=== PATIENT | female | born 1995 | race African-American/Black ===

== ENCOUNTER 2016-12-20 11:23 | Inpatient (IN) | payer MEDICAID ==
[~2016-12-20] VITALS: Ht 157.5 cm; Wt 85.0 kg
[~2016-12-20 11:23] MED LIST: MOTRIN 800800 MG/TAB PO; PERCOCET 325 MG1 TA2 PO; PRENATAL
[2016-12-27] MEDS ORDERED: PRENATAL MVI PO (12:06)
[2017-01-26] VITALS (19 sets, daily range): BP systolic 92–147; BP diastolic 53–77; PULSE 68–96; TEMP 97.2–98.1
[2017-01-26 05:37] LABS: BASO % 0.4 % (0.0-2.0); EOS % 0.4 % (0-4.0); GRAN # 4.4 (1.4-6.5); GRAN % 52.1 % (42.2-75.2); LYMPH # 3.2 (1.2-3.4); LYMPH % 38.2 % (20.0-51.0); MEAN CELL VOLUME 81 fl (80.0-95.0); MEAN CORPUSCULAR HGB CONC 33 g/dl (33.0-37.0); MEAN PLATELET VOLUME 11.1 fl (7.4-10.4); MONO # 0.7 (0.1-0.6); MONO % 8.7 % (1.7-9.3); PLATELET COUNT 255 K/mm3 (130-400); RED BLOOD COUNT 4.38 M/mm3 (4.10-5.30); REDCELL DISTRIBUTION WIDTH-CV 14.6 % (11.5-14.5); WHITE BLOOD COUNT 8.4 K/mm3 (4.8-10.8)
[2017-01-26 05:42] LABS: HEMATOCRIT 35.6 % (35.0-45.0); HEMOGLOBIN 11.8 g/dl (12.0-15.0); MEAN CORPUSCULAR HEMOGLOBIN 27 pg (26.0-32.0)
[2017-01-27 04:30] VITALS: BP 114/72; PULSE 69; TEMP 97.3
[2017-01-27 06:56] VITALS: BP 107/75; PULSE 78; TEMP 97.6
[2017-01-27 09:56] LABS: BASO % 0.1 % (0.0-2.0); EOS % 0.3 % (0-4.0); GRAN # 6.2 (1.4-6.5); LYMPH # 2.5 (1.2-3.4); LYMPH % 26.2 % (20.0-51.0); MEAN CELL VOLUME 84 fl (80.0-95.0); MEAN CORPUSCULAR HGB CONC 32 g/dl (33.0-37.0); MEAN PLATELET VOLUME 10.8 fl (7.4-10.4); MONO # 0.9 (0.1-0.6); MONO % 9.1 % (1.7-9.3); PLATELET COUNT 227 K/mm3 (130-400); RED BLOOD COUNT 4.21 M/mm3 (4.10-5.30); REDCELL DISTRIBUTION WIDTH-CV 14.9 % (11.5-14.5); WHITE BLOOD COUNT 9.6 K/mm3 (4.8-10.8)
[2017-01-27 10:14] LABS: HEMATOCRIT 35.4 % (35.0-45.0); HEMOGLOBIN 11.3 g/dl (12.0-15.0); MEAN CORPUSCULAR HEMOGLOBIN 27 pg (26.0-32.0)
[2017-01-27 16:37] VITALS: BP 104/59; PULSE 74; TEMP 98.6
[2017-01-27 19:55] VITALS: BP 99/57; PULSE 87; TEMP 98.3
[2017-01-28 08:48] VITALS: BP 114/59; PULSE 77; TEMP 98.2
[2017-01-28] MEDS ORDERED: IBU800 M1 PO (09:44)
[2017-01-28] MEDS ORDERED: PERCOCET 325 MG1 TA2 PO (09:44)
== END 2017-01-28 11:20 | disposition home or self-care (01) | DRG 766 ==
LOC: LDRO → EDSTATUS 11:43 → OB 01-26 05:00 → LDR 01-26 11:44 → OB 01-28 11:20
PROVIDERS: Obstetrics & Gynecology
PROC: 10D00Z1 Extraction of Products of Conception, Low, Open Approach (ICD-10-PCS; principal; 2017-01-26)
DX: O34.211 Maternal care for low transverse scar from previous cesarean delivery (principal); N85.8 Other specified noninflammatory disorders of uterus; O99.824 Streptococcus B carrier state complicating childbirth; O99.02 Anemia complicating childbirth; D64.9 Anemia, unspecified; Z3A.39 39 weeks gestation of pregnancy; Z37.0 Single live birth
CPT/HCPCS: J0690; J1885; J2270; J2405; J2590; J7120

== ENCOUNTER 2016-12-27 11:43 | Outpatient (CLI) | payer MEDICAID ==
[~2016-12-27] VITALS: Ht 157.5 cm; Wt 83.5 kg
[2016-12-27 11:59] VITALS: BP 116/65; PULSE 90; TEMP 98.8
[2016-12-27] MEDS ORDERED: PRENATAL MVI PO (12:06)
[2016-12-27 12:15] VITALS: BP 116/65; PULSE 90; TEMP 98.8
== END 2016-12-27 12:45 | disposition home or self-care (01) ==
LOC: LDRO 11:43
DX: O26.893 Other specified pregnancy related conditions, third trimester (principal); R10.2 Pelvic and perineal pain; Z3A.35 35 weeks gestation of pregnancy

== ENCOUNTER 2018-07-04 14:00 | Emergency (ER) | payer MEDICAID ==
[~2018-07-04] VITALS: Ht 157.5 cm; Wt 65.9 kg
[~2018-07-04 14:00] MED LIST changes: +IBU800 M1 PO; +PRENATAL MVI PO
[2018-07-04 14:02] VITALS: BP 116/70; TEMP 98.5
[2018-07-04] MEDS ORDERED: SKYLA13.5 MG IY (14:35)
[2018-07-04 14:54] LABS: COLLECTION METHOD CLEAN CATCH
[2018-07-04 14:59] LABS: HEMOGLOBIN 11.9 g/dl (12.5-16.0); MEAN CELL VOLUME 82 fl (80.0-100.0); MEAN CORPUSCULAR HEMOGLOBIN 26 pg (27.0-31.0); MEAN CORPUSCULAR HGB CONC 32 g/dl (33.0-37.0); MEAN PLATELET VOLUME 9.6 fl (7.4-10.4); PLATELET COUNT 444 K/mm3 (130-400); RED BLOOD COUNT 4.51 M/mm3 (4.10-5.30); REDCELL DISTRIBUTION WIDTH-CV 15.4 % (11.5-14.5)
[2018-07-04 15:05] LABS: MUCOUS Present /lpf; PH 6 (5-8); URINE APPEARANCE Cloudy; URINE BACTERIA None Seen /hpf; URINE BILIRUBIN Negative (NEGATIVE); URINE BLOOD 1+ (NEGATIVE); URINE COLOR Yellow; URINE GLUCOSE Negative (NEGATIVE); URINE KETONE Negative (NEGATIVE); URINE LEUKOCYTE ESTERASE Negative (NEGATIVE); URINE NITRATE Negative (NEGATIVE); URINE PROTEIN(semi-quant) 1+ (NEGATIVE); URINE RBC 0-2 /hpf
[2018-07-04 15:05] LABS: HEMATOCRIT 36.9 % (37.0-47.0)
[2018-07-04 15:10] LABS: ALBUMIN 3.7 gm/dL (3.5-5.0); BILIRUBIN,TOTAL 0.3 mg/dL (0.0-1.0); C-REACTIVE PROTEIN 0.6 mg/dL (0.0-0.9); CALCIUM 8.8 mg/dL (8.4-10.2); CREATININE, serum 0.74 mg/dL (0.52-1.25)
[2018-07-04 15:33] LABS: BAND 4 % (0-10); EOSINOPHIL 3 % (0-4); LYMPHOCYTE 52 % (20.0-51.0); NEUTROPHILS 37 % (42.0-75.2)
[2018-07-04 15:34] LABS: ANISOCYTOSIS 1+; PLATELET ESTIMATE INCREASED (NORMAL)
[2018-07-04 15:41] VITALS: PULSE 88
== END 2018-07-04 15:42 | disposition home or self-care (01) ==
LOC: COL.ER 14:00
PROVIDERS: Physician Assistant
DX: R10.2 Pelvic and perineal pain (principal); Z97.5 Presence of (intrauterine) contraceptive device

== ENCOUNTER 2019-02-12 10:16 | Day surgery (SDC) | payer MEDICAID ==
[~2019-02-12] VITALS: Ht 155 cm; Wt 60.3 kg
[~2019-02-12 10:16] MED LIST changes: +SKYLA13.5 MG IY
[2019-02-12] MEDS ORDERED: NATURAL IRON65 MG PO (13:58)
[2019-02-12] MEDS ORDERED: VITAMIN C500 MG PO (13:58)
[2019-02-12 14:25] VITALS: BP 98/52; PULSE 66; TEMP 97.7
[2019-02-12 16:10] VITALS: BP 90/59; PULSE 123; TEMP 97.4
--- NOTE | 2019-02-12 16:10 | NUR ---
Pt to [facility] [place] [facility] via cart from [place]. Pt drowsy, but awake. Denies pain or nausea. No movement to right upper extremity due to block placement. Right arm elevated, ice pack to right hand. Right fingers have +3 second capillary refill. Coffee and water given per pt request. No visitors here with pt at this time. Will continue to monitor.
[2019-02-12 16:25] VITALS: BP 92/69; PULSE 63
[2019-02-12] MEDS ORDERED: NORCO 325 MG-51 TAB PO (16:25)
--- NOTE | 2019-02-12 16:25 | NUR ---
Pt continues to rest. Tolerating fluids without difficulties. Denies need for food. Friend Mamie parkinson.
[2019-02-12 16:40] VITALS: BP 108/71; PULSE 66
--- NOTE | 2019-02-12 16:40 | NUR ---
Pt continues to rest. Denies needs. Call light within reach.
--- NOTE | 2019-02-12 17:00 | NUR ---
Discharge instructions reviewed. Pt voices understanding. IV site discontinued with all parts intact. Pt assisted with dressing and sling placement.
--- NOTE | 2019-02-12 17:15 | NUR ---
Pt escorted to private car via wheel chair. Pt accompanied home by her friend.
== END 2019-02-12 17:15 | disposition home or self-care (01) ==
LOC: COL.ER 10:16 → SDCO 12:43 → COL.AMSURD 12:43 → SDCO 17:15
DX: S62.396B Other fracture of fifth metacarpal bone, right hand, initial encounter for open fracture (principal); F17.290 Nicotine dependence, other tobacco product, uncomplicated; W20.8XXA Other cause of strike by thrown, projected or falling object, initial encounter
CPT/HCPCS: J0670; J0690; J1170; J2250; J2405; J2704; J7120

== ENCOUNTER 2019-04-27 08:57 | Emergency (ER) | payer MEDICAID ==
[~2019-04-27] VITALS: Ht 154.9 cm; Wt 59.1 kg
[~2019-04-27 08:57] MED LIST changes: +NATURAL IRON65 MG PO; +NORCO 325 MG-51 TAB PO; +VITAMIN C500 MG PO
[2019-04-27 09:01] VITALS: BP 126/62; TEMP 98
[2019-04-27 10:01] VITALS: PULSE 85
== END 2019-04-27 10:03 | disposition home or self-care (01) ==
LOC: COL.ER 08:57
DX: S90.31XA Contusion of right foot, initial encounter (principal); F17.290 Nicotine dependence, other tobacco product, uncomplicated; W19.XXXA Unspecified fall, initial encounter; Y92.009 Unspecified place in unspecified non-institutional (private) residence as the place of occurrence of the external cause

== ENCOUNTER 2019-06-05 11:13 | Emergency (ER) | payer MEDICAID ==
[~2019-06-05] VITALS: Ht 154.9 cm; Wt 59.1 kg
[2019-06-05 11:56] LABS: COLLECTION METHOD CLEAN CATCH
[2019-06-05 12:20] LABS: MEAN CELL VOLUME 78 fl (80.0-100.0); MEAN CORPUSCULAR HEMOGLOBIN 25 pg (27.0-31.0); MEAN CORPUSCULAR HGB CONC 32 g/dl (33.0-37.0); MEAN PLATELET VOLUME 9.2 fl (7.4-10.4); PLATELET COUNT 870 K/mm3 (130-400); RED BLOOD COUNT 4.04 M/mm3 (4.10-5.30); REDCELL DISTRIBUTION WIDTH-CV 17.2 % (11.5-14.5)
[2019-06-05 12:21] LABS: HEMATOCRIT 31.3 % (37.0-47.0)
[2019-06-05 12:22] LABS: ALBUMIN 3.7 gm/dL (3.5-5.0); BILIRUBIN,TOTAL 0.4 mg/dL (0.0-1.0); CALCIUM 9.6 mg/dL (8.4-10.2); CREATININE, serum 0.79 (0.52-1.25); TOTAL PROTEIN 8.8 gm/dL (6.4-8.2)
[2019-06-05 12:23] LABS: URINE APPEARANCE Clear; URINE COLOR Yellow
[2019-06-05 12:24] LABS: PH 6 (5-8); URINE BILIRUBIN Negative (NEGATIVE); URINE GLUCOSE Negative (NEGATIVE); URINE KETONE Negative (NEGATIVE); URINE NITRATE Negative (NEGATIVE); URINE PROTEIN(semi-quant) 1+ (NEGATIVE)
[2019-06-05 12:25] LABS: SQUAMOUS EPITHELIAL 0-2 /hpf; URINE BLOOD Negative (NEGATIVE); URINE LEUKOCYTE ESTERASE 3+ (NEGATIVE); URINE RBC 0-2 /hpf
[2019-06-05 12:26] LABS: MUCOUS Present /lpf; URINE BACTERIA Rare /hpf
[2019-06-05 12:44] LABS: BAND 6 % (0-10); EOSINOPHIL 1 % (0-4); HYPOCHROMIA 1+; LYMPHOCYTE 9 % (20.0-51.0); NEUTROPHILS 74 % (42.0-75.2); PLATELET ESTIMATE INCREASED (NORMAL)
[2019-06-05] MEDS ORDERED: DOXYCYCLINE 10100 MG PO (12:54)
[2019-06-05] MEDS ORDERED: NORCO 325 MG-51 TAB PO (12:55)
[2019-06-05] MEDS ORDERED: ZOFRAN 4MG T4 MG/TAB PO (12:55)
[2019-06-05 13:35] VITALS: BP 118/80; PULSE 92; TEMP 99.2
== END 2019-06-05 14:00 | disposition home or self-care (01) ==
LOC: COL.ER 11:13
PROVIDERS: Family Medicine
DX: N39.0 Urinary tract infection, site not specified (principal); Z98.890 Other specified postprocedural states
CPT/HCPCS: A4216; J0696; J1885; J2405; J7030